=== PATIENT | male | born 1990 | race Caucasian/White ===

== ENCOUNTER 2019-12-27 11:55 | Emergency (ER) | payer OTHER ==
[2019-12-27 12:03] VITALS: BP 137/76; PULSE 83; RESP 20; TEMP 99
[2019-12-27] MEDS ORDERED: IBUPROFEN 600 MG TAB PO STA (12:10)
--- NOTE | 2019-12-27 12:49 | ED ---
General Adult HPI - General Source: patient, RN notes reviewed Mode of arrival: ambulatory Limitations: no limitations <Rei Hernandez - Last Filed: 12/27/19 13:55> <Dayana Bernstein - Last Filed: 12/27/19 23:10> - General Chief complaint: Fever Stated complaint: Fever Time Seen by Provider: 12/27/19 12:10 - History of Present Illness Initial comments: 29-year-old male without any significant past medical history presents to the emergency department for a chief complaint of fever. Patient states that he has had a fever of 102 for the past 3 days. States he did take Tylenol prior to arrival. Patient states that he has cough congestion and sore throat as well. Patient denies history of asthma or smoking. Patient also has a mild headache. Denies neck stiffness. Denies photosensitivity.Patient has no other complaints at this time including shortness of breath, chest pain, abdominal pain, nausea or vomiting, headache, or visual changes. (Rei Hernandez) - Related Data Previous Rx's Medication Instructions Recorded Azithromycin [Zithromax Z-pack] 250 mg PO DIRECTED #6 tab 12/27/19 Allergies Allergy/AdvReac Type Severity Reaction Status Date / Time No Known Allergies Allergy Verified 12/27/19 12:03 Review of Systems ROS Other: All systems not noted in ROS Statement are negative. <Rei Hernandez - Last Filed: 12/27/19 13:55> ROS Other: All systems not noted in ROS Statement are negative. <Dayana Bernstein - Last Filed: 12/27/19 23:10> ROS Statement: Those systems with pertinent positive or pertinent negative responses have been documented in the HPI. Past Medical History Past Medical History: No Reported History History of Any Multi-Drug Resistant Organisms: None Reported Past Surgical History: Orthopedic Surgery Past Psychological History: No Psychological Hx Reported Smoking Status: Never smoker Past Alcohol Use History: Occasional Past Drug Use History: None Reported <Rei Hernandez - Last Filed: 12/27/19 13:55> General Exam Limitations: no limitations General appearance: alert, in no apparent distress Head exam: Present: atraumatic, normocephalic, normal inspection Eye exam: Present: normal appearance, PERRL, EOMI. Absent: scleral icterus, conjunctival injection, periorbital swelling ENT exam: Present: normal exam, normal oropharynx (Nonerythematous, uvula midline), mucous membranes moist, TM's normal bilaterally (Nonerythematous, nonbulging), normal external ear exam Neck exam: Present: normal inspection, full ROM. Absent: tenderness, meningismus, lymphadenopathy Respiratory exam: Present: normal lung sounds bilaterally. Absent: respiratory distress, wheezes, rales, rhonchi, stridor Cardiovascular Exam: Present: regular rate, normal rhythm, normal heart sounds. Absent: bradycardia, tachycardia, irregular rhythm GI/Abdominal exam: Present: soft, normal bowel sounds. Absent: distended, tenderness, guarding, rebound, rigid <Rei Hernandez - Last Filed: 12/27/19 13:55> Course Vital Signs 12/27/19 11:59 Temperature 99 F Pulse Rate 83 Respiratory 20 Rate Blood Pressure 137/76 O2 Sat by Pulse 97 Oximetry Medical Decision Making <Rei Hernandez - Last Filed: 12/27/19 13:55> <Dayana Bernstein - Last Filed: 12/27/19 23:10> - Medical Decision Making Vitals are stable. Patient is afebrile here in the emergency department but did have Tylenol prior to arrival. Patient has fevers at home up to 102. Influenza is negative. Chest x-ray shows a right middle lobe pneumonia. Patient was treated with azithromycin. He was given a dose here in the emergency department. Patient is a nonsmoker. Patient does not have any immunocompromising factors. He was given a work note. He will follow up with primary care. He will return if he has any worsening symptoms. I discussed this case with attending Dr. Bernstein who agrees with this assessment and treatment plan. (Rei Hernandez) I was available for consultation in the emergency department. The history and physical exam were done by the midlevel provider. I was consulted for this patients care. I reviewed the case with the midlevel provider and based on their presentation of the patient, I agree with the assessment, medical decision making and plan of care as documented. Chart was dictated using [employer] dictation software. Attempts were made to correct any dictation errors however some typographical errors may persist. (Dayana Bernstein) - Lab Data Lab Results 12/27/19 Range/Units 12:25 Influenza Type A RNA Not Detected (Not Detectd) Influenza Type B (PCR) Not Detected (Not Detectd) Disposition Is patient prescribed a controlled substance at d/c from ED?: No Time of Disposition: 13:55 <DavidRei P - Last Filed: 12/27/19 13:55> <MalcolmfalguniDayana Jann - Last Filed: 12/27/19 23:10> Clinical Impression: Pneumonia Disposition: HOME SELF-CARE Condition: Good Instructions (If sedation given, give patient instructions): Fever in Adults (ED), Pneumonia (ED) Additional Instructions: Please take antibiotic as directed. Continue Motrin and Tylenol for fever. He may alternate these about every 3 hours. Follow-up with primary care in 1-2 days. They may want a repeat chest x-ray to ensure resolution. Return to the emergency department with any worsening symptoms. Prescriptions: Azithromycin [Zithromax Z-pack] 250 mg PO DIRECTED #6 tab Referrals: Rosalba Rodriguez MD [REFERRING] - 1-2 days Melissa Rodriguez MD [STAFF PHYSICIAN] - 1-2 days
--- NOTE | 2019-12-27 13:10 | XR ---
EXAMINATION TYPE: XR chest 2V DATE OF EXAM: 12/27/2019 HISTORY: cough. REFERENCE: NONE. FINDINGS: There is right middle lobe infiltrate. The left lung is clear. The heart is not enlarged. P leural spaces are clear. IMPRESSION: RIGHT MIDDLE LOBE PNEUMONIA.
[2019-12-27] MEDS ORDERED: AZITHROMYCIN 500 MG TAB PO STA (13:52)
== END 2019-12-27 14:07 | disposition home or self-care (01) ==
LOC: EC 11:55
DX: J18.9 Pneumonia, unspecified organism (principal); R51 Headache
CPT/HCPCS: 71046; 87502; 99283

== ENCOUNTER 2021-12-16 16:37 | Emergency (ER) | payer OTHER ==
[2021-12-16 16:42] VITALS: RESP 18; TEMP 100.7
--- NOTE | 2021-12-16 17:40 | ED ---
Overdose HPI - General Chief Complaint: Overdose Stated Complaint: Overdose Time Seen by Provider: 12/16/21 16:37 Source: patient, EMS, RN notes reviewed Mode of arrival: EMS Limitations: no limitations - History of Present Illness Initial Comments: 30-year-old male with a history of heroin abuse and past who apparently shot up heroin into his left arm today and became unresponsive. EMS was called by his significant other. Patient was noted have only respiratory rate of about 4/m pulse oximetry 7% on room air. She was initially given 2 mg of Narcan nasally after an IV was established she was given 2 doses of 1 mg of Narcan. Patient did awaken after the second dose. He remained awake and alert and route via the ambulance. No seizure activity was noted no trauma noted no other complaints or modifying factors at this time MD Complaint: accidental overdose - Related Data Previous Rx's Medication Instructions Recorded Azithromycin [Zithromax Z-pack (6 250 mg PO DIRECTED #6 tab 12/27/19 tabs)] Allergies Allergy/AdvReac Type Severity Reaction Status Date / Time No Known Allergies Allergy Verified 12/27/19 12:03 Review of Systems ROS Statement: Those systems with pertinent positive or pertinent negative responses have been documented in the HPI. ROS Other: All systems not noted in ROS Statement are negative. Past Medical History Past Medical History: No Reported History History of Any Multi-Drug Resistant Organisms: None Reported Past Surgical History: Orthopedic Surgery Past Psychological History: No Psychological Hx Reported Smoking Status: Vaper Past Alcohol Use History: Occasional Past Drug Use History: Heroin General Exam - General Exam Comments Initial Comments: This a well-developed well-nourished awake alert oriented times 3 male Limitations: no limitations General appearance: alert, anxious Head exam: Present: atraumatic, normocephalic, normal inspection Eye exam: Present: normal appearance, PERRL, EOMI. Absent: scleral icterus, conjunctival injection, periorbital swelling ENT exam: Present: normal exam, mucous membranes moist Neck exam: Present: normal inspection, full ROM, other (No surgery or bruits). Absent: tenderness, meningismus, lymphadenopathy Respiratory exam: Present: normal lung sounds bilaterally. Absent: respiratory distress, wheezes, rales, rhonchi, stridor Cardiovascular Exam: Present: regular rate, normal rhythm, normal heart sounds. Absent: systolic murmur, diastolic murmur, rubs, gallop, clicks GI/Abdominal exam: Present: soft, normal bowel sounds. Absent: distended, tenderness, guarding, rebound, rigid Extremities exam: Present: full ROM, normal capillary refill, other (IV site in the left arm injection site negative for evidence of infectious processes). Absent: tenderness, pedal edema, joint swelling, calf tenderness Back exam: Present: normal inspection Neurological exam: Present: alert, oriented X3, CN II-XII intact Psychiatric exam: Present: normal affect, normal mood Skin exam: Present: warm, dry, intact, normal color. Absent: rash Course Vital Signs 12/16/21 12/16/21 16:39 16:43 Temperature 100.7 F H Pulse Rate 104 H Pulse Rate [ 102 H Pulse Oximetery ] Respiratory 18 Rate Blood Pressure 139/73 O2 Sat by Pulse 94 L Oximetry Medical Decision Making - Medical Decision Making Patient was observed for approximately 1 hour he remained awake alert oriented 3 in no where he was Day it was. He initially very more state using heroin. Patient will be discharged and given home by his significant other. Disposition Clinical Impression: Accidental heroin overdose Disposition: HOME SELF-CARE Condition: Good Instructions (If sedation given, give patient instructions): Adult Overdose (ED) Is patient prescribed a controlled substance at d/c from ED?: No Referrals: None,Stated [Primary Care Provider] - 1-2 days
[2021-12-16 17:42] VITALS: BP 129/85; PULSE 100
== END 2021-12-16 17:48 | disposition home or self-care (01) ==
LOC: EC 16:37
DX: T40.1X1A Poisoning by heroin, accidental (unintentional), initial encounter (principal); F17.290 Nicotine dependence, other tobacco product, uncomplicated
CPT/HCPCS: 99284

== ENCOUNTER 2023-08-16 18:39 | Emergency (ER) | payer OTHER ==
[2023-08-16 19:16] VITALS: BP 154/100; PULSE 61; RESP 16; TEMP 98
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
== END 2023-08-16 21:59 | disposition home or self-care (01) ==
LOC: EC 18:39
DX: Z04.3 Encounter for examination and observation following other accident (principal); F17.290 Nicotine dependence, other tobacco product, uncomplicated; F15.90 Other stimulant use, unspecified, uncomplicated; X58.XXXA Exposure to other specified factors, initial encounter; Y92.411 Interstate highway as the place of occurrence of the external cause
CPT/HCPCS: 99283

== ENCOUNTER 2023-09-10 09:07 | Emergency (ER) | payer OTHER ==
[2023-09-10] MEDS ORDERED: diphenhydrAMINE 50 MG/ML 1 ML VIAL IVP STA (09:53)
[2023-09-10] MEDS ORDERED: METOCLOPRAMIDE 5 MG/ML 2 ML VIAL IVP STA (09:53)
[2023-09-10] MEDS ORDERED: DEXAMETHASONE SOD PHOSPHATE 10 MG/ML 1 ML VIAL IVP STA (09:53)
[2023-09-10] MEDS ORDERED: SODIUM CHLORIDE 0.9% 1,000 ML IV STA (09:53)
[2023-09-10] MEDS ORDERED: KETOROLAC 15 MG/ML 1 ML VIAL IVP STA ×2 (09:53→11:28)
--- NOTE | 2023-09-10 10:00 | ED ---
Headache HPI - General Chief Complaint: Upper Respiratory Infection Stated Complaint: neck pain-congestion Time Seen by Provider: 09/10/23 09:30 Source: patient, RN notes reviewed Mode of arrival: ambulatory Limitations: no limitations - History of Present Illness Initial Comments: This is a 32-year-old male who presents to the emergency department for c oughing, congestion, headaches, and neck pain. States that for the last week he has been dealing with coughing and congestion, and has since started to develop increasing headaches and neck pain. He is now having difficulty turning his head due to the neck pain, however he does not feel like there is stiffness that is preventing him from turning his head. Coughing is also causing shortness of breath. Describes the cough as productive. Denies any chest pain or sick contacts. He is not taking anything to manage his symptoms. MD Complaint: headache - Related Data Previous Rx's Medication Instructions Recorded Azithromycin [Zithromax Z-pack (6 250 mg PO DIRECTED #6 tab 12/27/19 tabs)] Ketorolac [Toradol] 10 mg PO Q6HR PRN #15 tab 09/10/23 Promethazine/Dextromethorphan 5 ml PO Q4-6H PRN #473 ml 09/10/23 [Promethazine-Dm 6.25-15 mg/5Ml] methocarbamoL [Robaxin-750] 1,500 mg PO TID PRN #30 tab 09/10/23 Allergies Allergy/AdvReac Type Severity Reaction Status Date / Time No Known Allergies Allergy Verified 09/10/23 09:21 Review of Systems ROS Statement: Those systems with pertinent positive or pertinent negative responses have been documented in the HPI. ROS Other: All systems not noted in ROS Statement are negative. Past Medical History Past Medical History: No Reported History History of Any Multi-Drug Resistant Organisms: None Reported Past Surgical History: Orthopedic Surgery Past Psychological History: No Psychological Hx Reported Smoking Status: Vaper Past Alcohol Use History: Occasional Past Drug Use History: Heroin General Exam Limitations: no limitations General appearance: alert, in no apparent distress Head exam: Present: atraumatic, normocephalic, normal inspection Eye exam: Present: normal appearance, PERRL, EOMI. Absent: scleral icterus, conjunctival injection, periorbital swelling Neck exam: Present: other (ROM limited by pain. Negative Kernig's and Brudzinski's). Absent: tenderness, meningismus, lymphadenopathy Respiratory exam: Present: normal lung sounds bilaterally. Absent: respiratory distress, wheezes, rales, rhonchi, stridor Cardiovascular Exam: Present: regular rate, normal rhythm, normal heart sounds. Absent: systolic murmur, diastolic murmur, rubs, gallop, clicks Neurological exam: Present: alert, oriented X3, CN II-XII intact Psychiatric exam: Present: normal affect, normal mood Skin exam: Present: warm, dry, intact, normal color. Absent: rash Course Vital Signs 09/10/23 09/10/23 09:21 11:44 Temperature 99.4 F 98.7 F Pulse Rate 110 H 77 Respiratory 16 18 Rate Blood Pressure 133/83 109/76 O2 Sat by Pulse 99 95 Oximetry Medical Decision Making - Medical Decision Making This is a 32-year-old male who presents to the emergency department for coughing, congestion, and neck pain. Was pt. sent in by a medical professional or institution? @ -No Did you speak to anyone other than the patient for history? @ -No Did you review nursing and triage notes? @ -Yes, and I agree, it is accurate with regards to the patient's symptoms. Were old charts reviewed? @ -No Differential Diagnosis? @ -Differential Cough: Influenza, Covid, RSV, croup, allergic rhinitis, GERD, pneumonia, bronchitis, COPD, viral pharyngitis, streptococcal pharyngitis, this is not meant to be an a ll-inclusive list. EKG interpreted by me (3pts min.)? @ -Not obtained X-rays interpreted by me (1pt min.)? @ -Chest x-ray obtained, my interpretation identifies no localized consolidations or infiltrates. CT interpreted by me (1pt min.)? @ -Not obtained U/S interpreted by me (1pt. min.)? @ -Not obtained What testing was considered but not performed? (CT, X-rays, U/S, labs)? Why? @ -None What meds were considered but not given? Why? @ -None Did you discuss the management of the patient with other professionals? @ -No Did you reconcile home meds? @ -No Was smoking cessation discussed for >3mins.? @ -I discussed smoking cessation for greater than 3 minutes. The risk of smoking were discussed with the patient including but not limited to risks of cancer, stroke, coronary artery disease and COPD. Also discussed with patient were multiple methods of quitting smoking. Lastly we discussed the financial cost of smoking. Was critical care preformed (if so, how long)? @ -No Were there social determinants of health that impacted care today? How? (Homelessness, low income, unemployed, alcoholism, drug addiction, transportation, low edu. Level, literacy, decrease access to med. care, snf, rehab)? @ -No Was there de-escalation of care discussed even if they declined? (Discuss DNR or withdrawal of care, Hospice)? @ -No What co-morbidities impacted this encounter? (DM, HTN, Smoking, COPD, CAD, Cancer, CVA, Hep., AIDS, mental health diagnosis, sleep apnea, morbid obesity)? @ -Smoking Was patient admitted / discharged? @ -Discharged. Lab work obtained revealing an elevated CRP of 5.7 and no other actionable findings. Covid, influenza, and RSV testing were negative. Chest x- ray reveals no acute process. He was initially treated with a migraine cocktail consisting of IV fluids, Toradol, Decadron, Reglan, and Benadryl. However, he did not have significant improvement in symptoms afterwards. He was then given a dose of Dilaudid and Norflex, and states that he felt significantly improved. He had full range of motion of the neck and the headache was essentially gone. While his symptoms of a headache and neck pain do give consideration to mening itis, he has no meningismus and has a negative Kernig's and Brudzinski's sign, and felt remarkably improved after medications and requested discharge home. He was given very strict return parameters and advised to have close follow-up with his primary care provider. Patient expresses understanding. He was given prescriptions for Toradol, Robaxin, and promethazine DM cough syrup with dosing instructions reviewed. Undiagnosed new problem with uncertain prognosis? @ -None Drug Therapy requiring intensive monitoring for toxicity (Heparin, Nitro, Insulin, Cardizem)? @ -None Were any procedures done? @ -None Diagnosis/symptom? @ -Bronchitis, headaches, neck pain Acute, or Chronic, or Acute on Chronic? @ -Acute Uncomplicated (without systemic symptoms) or Complicated (systemic symptoms)? @ -Uncomplicated Side effects of treatment? @ -None Exacerbation, Progression, or Severe Exacerbation] @ -Not applicable Poses a threat to life or bodily function? @ -Unlikely, however this will depend on the cause of his symptoms. Return precautions reviewed in depth, the patient is instructed to return to the emergency department with any new, worsening, or concerning symptoms. Patient verbalized understanding. This case was discussed in detail with the attending ED physician, Dr. Mcnamara. Presentation, findings, and treatment plan discussed in detail as well. - Lab Data Result diagrams: 09/10/23 10:07 09/10/23 10:07 Lab Results 09/10/23 09/10/23 09/10/23 Range/Units 09:39 10:07 10:07 WBC 4.5 (3.8-10.6) k/uL RBC 5.06 (4.30-5.90) m/uL Hgb 14.6 (13.0-17.5) gm/dL Hct 42.1 (39.0-53.0) % MCV 83.2 (80.0-100.0) fL MCH 28.9 (25.0-35.0) pg MCHC 34.7 (31.0-37.0) g/dL RDW 12.8 (11.5-15.5) % Plt Count 255 (150-450) k/uL MPV 7.7 Neutrophils % 74 % Lymphocytes % 17 % Monocytes % 6 % Eosinophils % 2 % Basophils % 0 % Neutrophils # 3.3 (1.3-7.7) k/uL Lymphocytes # 0.7 L (1.0-4.8) k/uL Monocytes # 0.3 (0-1.0) k/uL Eosinophils # 0.1 (0-0.7) k/uL Basophils # 0.0 (0-0.2) k/uL Sodium 137 (137-145) mmol/L Potassium 3.9 (3.5-5.1) mmol/L Chloride 99 (98-107) mmol/L Carbon Dioxide 23 (22-30) mmol/L Anion Gap 15 mmol/L BUN 13 (9-20) mg/dL Creatinine 0.85 (0.66-1.25) mg/dL Est GFR (CKD-EPI)AfAm >90 (>60 ml/min/1.73 sqM) Est GFR (CKD-EPI)NonAf >90 (>60 ml/min/1.73 sqM) Glucose 104 H (74-99) mg/dL Plasma Lactic Acid Rocco (0.7-2.0) mmol/L Calcium 9.3 (8.4-10.2) mg/dL Total Bilirubin 0.5 (0.2-1.3) mg/dL AST 32 (17-59) U/L ALT 27 (4-49) U/L Alkaline Phosphatase 55 (38-126) U/L C-Reactive Protein 5.7 H (<1.0) mg/dL Total Protein 7.3 (6.3-8.2) g/dL Albumin 4.2 (3.5-5.0) g/dL Influenza Type A (PCR) Not Detected (Not Detectd) Influenza Type B (PCR) Not Detected (Not Detectd) RSV (PCR) Not Detected (Not Detectd) SARS-CoV-2 (PCR) Not Detected (Not Detectd) 09/10/23 Range/Units 10:07 WBC (3.8-10.6) k/uL RBC (4.30-5.90) m/uL Hgb (13.0-17.5) gm/dL Hct (39.0-53.0) % MCV (80.0-100.0) fL MCH (25.0-35.0) pg MCHC (31.0-37.0) g/dL RDW (11.5-15.5) % Plt Count (150-450) k/uL MPV Neutrophils % % Lymphocytes % % Monocytes % % Eosinophils % % Basophils % % Neutrophils # (1.3-7.7) k/uL Lymphocytes # (1.0-4.8) k/uL Monocytes # (0-1.0) k/uL Eosinophils # (0-0.7) k/uL Basophils # (0-0.2) k/uL Sodium (137-145) mmol/L Potassium (3.5-5.1) mmol/L Chloride (98-107) mmol/L Carbon Dioxide (22-30) mmol/L Anion Gap mmol/L BUN (9-20) mg/dL Creatinine (0.66-1.25) mg/dL Est GFR (CKD-EPI)AfAm (>60 ml/min/1.73 sqM) Est GFR (CKD-EPI)NonAf (>60 ml/min/1.73 sqM) Glucose (74-99) mg/dL Plasma Lactic Acid Rocco 2.0 (0.7-2.0) mmol/L Calcium (8.4-10.2) mg/dL Total Bilirubin (0.2-1.3) mg/dL AST (17-59) U/L ALT (4-49) U/L Alkaline Phosphatase (38-126) U/L C-Reactive Protein (<1.0) mg/dL Total Protein (6.3-8.2) g/dL Albumin (3.5-5.0) g/dL Influenza Type A (PCR) (Not Detectd) Influenza Type B (PCR) (Not Detectd) RSV (PCR) (Not Detectd) SARS-CoV-2 (PCR) (Not Detectd) - Radiology Data Radiology results: report reviewed, image reviewed Disposition Clinical Impression: Bronchitis, Neck pain, Headache, Nicotine dependence Disposition: HOME SELF-CARE Instructions (If sedation given, give patient instructions): Upper Respiratory Infection (ED), Acute Headache (ED), Neck Pain (ED) Additional Instructions: Return to the emergency department with any new, worsening, or concerning sympto ms, especially worsening headaches or neck pain. Take the antibiotic as prescribed for 5 days. Take the prednisone daily for 5 days. You can take the Robaxin as 1-2 tablets 3-4 times daily for neck pain and tightness. You can also take the Toradol up to every 6 hours as needed for pain relief. You may take the Toradol with Tylenol, however if you choose to take the Toradol, do not take any other anti-inflammatories such as ibuprofen, take one or the other. Follow up with your primary care provider in 1-2 days. Prescriptions: Promethazine/Dextromethorphan [Promethazine-Dm 6.25-15 mg/5Ml] 5 ml PO Q4-6H PRN #473 ml PRN Reason: Cough methocarbamoL [Robaxin-750] 1,500 mg PO TID PRN #30 tab PRN Reason: Pain Ketorolac [Toradol] 10 mg PO Q6HR PRN #15 tab PRN Reason: Pain Is patient prescribed a controlled substance at d/c from ED?: No Referrals: None,Stated [Primary Care Provider] - 1-2 days
[2023-09-10 10:25] LABS: Basophils % (A) 0 %; Eosinophils # (A) 0.1 k/uL (0-0.7); Eosinophils % (A) 2 %; HCT 42.1 % (39.0-53.0); HGB 14.6 gm/dL (13.0-17.5); Lymphocytes # (A) 0.7 k/uL (1.0-4.8); Lymphocytes % (A) 17 %; MCH 28.9 pg (25.0-35.0); MCHC 34.7 g/dL (31.0-37.0); MCV 83.2 fL (80.0-100.0); Mean Platelet Volume 7.7; Monocytes # (A) 0.3 k/uL (0-1.0); Monocytes % (A) 6 %; Neutrophils # (A) 3.3 k/uL (1.3-7.7); Neutrophils % (A) 74 %; Platelet Count 255 k/uL (150-450); RBC 5.06 m/uL (4.30-5.90); RDW 12.8 % (11.5-15.5); WBC 4.5 k/uL (3.8-10.6)
[2023-09-10 10:39] LABS: ALT 27 U/L (4-49); AST 32 U/L (17-59); African American GFR (CKD) >90 (>60 ml/min/1.73 sqM); Albumin 4.2 g/dL (3.5-5.0); Alkaline Phosphatase 55 U/L (38-126); Anion Gap 15 mmol/L; Blood Urea Nitrogen 13 mg/dL (9-20); C Reactive Protein 5.7 mg/dL (<1.0); Calcium 9.3 mg/dL (8.4-10.2); Carbon Dioxide 23 mmol/L (22-30); Chloride 99 mmol/L (98-107); Glucose 104 mg/dL (74-99); Non-African American GFR(CKD) >90 (>60 ml/min/1.73 sqM); Potassium 3.9 mmol/L (3.5-5.1); Sodium 137 mmol/L (137-145); Total Bilirubin 0.5 mg/dL (0.2-1.3); Total Protein 7.3 g/dL (6.3-8.2)
--- NOTE | 2023-09-10 11:00 | XR ---
EXAMINATION TYPE: XR chest 2V DATE OF EXAM: 09/10/2023 COMPARISON: 12/27/2019 HISTORY: Chest pain TECHNIQUE: Frontal and lateral views of the chest are obtained. FINDINGS: There is no focal air space opacity. No evidence for pneumothorax. No pleural effusion. The cardiac silhouette size is within normal limits. The osseous structures are grossly intact. IMPRESSION: 1. No acute cardiopulmonary process.
[2023-09-10] MEDS ORDERED: ORPHENADRINE 30 MG/ML 2 ML VIAL IVP STA (11:28)
[2023-09-10] MEDS ORDERED: HYDROmorphone 1 MG/ML 1 ML SYRINGE IVP STA (11:30)
[2023-09-10 11:55] VITALS: BP 109/76; PULSE 77; RESP 18; TEMP 98.7
[2023-09-10] MEDS ORDERED: ACET/COD 300 MG/30 MG STARTER PACK 6 TAB BTL PO STA (12:50)
== END 2023-09-10 13:20 | disposition home or self-care (01) ==
LOC: EC 09:07
DX: M54.2 Cervicalgia (principal); J40 Bronchitis, not specified as acute or chronic; R51.9 Headache, unspecified; F17.290 Nicotine dependence, other tobacco product, uncomplicated; Z20.822 Contact with and (suspected) exposure to COVID-19
CPT/HCPCS: 36415; 80053; 83605; 85025; 86140; 87636; 71046; 99284; 96374; 96375 ×5; 96376; 96361 ×3; 99406; J1200; J1100; J2360; J2765; J1170; J1885

== ENCOUNTER 2025-04-16 12:59 | Emergency (ER) | payer BC, OTHER ==
--- NOTE | 2025-04-16 13:54 | ED ---
General Adult HPI - General Chief complaint: Shortness of Breath Stated complaint: SOB Time Seen by Provider: 04/16/25 13:12 Source: patient, family, RN notes reviewed Mode of arrival: ambulatory Limitations: no limitations - History of Present Illness Initial comments: 34-year-old male presented to emergency room with complaints of productive cough and shortness of breath over the past 6 days. Patient states that the symptoms started 6 days ago and this is not improved has he was given antibiotics, steroids, albuterol inhaler from urgent care. He states that he has been having a productive cough that has been green and headaches with chills. He states that he feels "short of breath ". He denies history of DVT, PE, recent prolonged travel, recent surgeries. Denies history of asthma or COPD however endorses history of tobacco use. - Related Data Previous Rx's Medication Instructions Recorded Azithromycin [Zithromax Z-pack (6 250 mg PO DIRECTED #6 tab 12/27/19 tabs)] Ketorolac [Toradol] 10 mg PO Q6HR PRN #15 tab 09/10/23 Promethazine/Dextromethorphan 5 ml PO Q4-6H PRN #473 ml 09/10/23 [Promethazine-Dm 6.25-15 mg/5Ml] methocarbamoL [Robaxin-750] 1,500 mg PO TID PRN #30 tab 09/10/23 Albuterol Inhaler [Ventolin Hfa 1 - 2 puff INHALATION Q6H PRN #1 04/16/25 Inhaler] each Benzonatate [Tessalon Perles] 100 mg PO TID PRN #15 capsule 04/16/25 Allergies Allergy/AdvReac Type Severity Reaction Status Date / Time No Known Allergies Allergy Verified 04/16/25 13:30 Review of Systems ROS Statement: Those systems with pertinent positive or pertinent negative responses have been documented in the HPI. ROS Other: All systems not noted in ROS Statement are negative. Past Medical History Past Medical History: No Reported History History of Any Multi-Drug Resistant Organisms: None Reported Past Surgical History: Orthopedic Surgery Past Psychological History: No Psychological Hx Reported Smoking Status: Vaper Past Alcohol Use History: Occasional Past Drug Use History: Heroin General Exam Limitations: no limitations General appearance: alert, in no apparent distress ENT exam: Present: normal exam, mucous membranes moist Neck exam: Present: normal inspection. Absent: tenderness, meningismus, lymphadenopathy Respiratory exam: Present: normal lung sounds bilaterally. Absent: respiratory distress, wheezes, rales, rhonchi, stridor Cardiovascular Exam: Present: regular rate, normal rhythm, normal heart sounds. Absent: systolic murmur, diastolic murmur, rubs, gallop, clicks GI/Abdominal exam: Present: soft, normal bowel sounds. Absent: distended, tenderness, guarding, rebound, rigid Extremities exam: Present: normal inspection, full ROM, normal capillary refill. Absent: tenderness, pedal edema, joint swelling, calf tenderness Skin exam: Present: warm, dry, intact, normal color. Absent: rash Course Vital Signs 04/16/25 04/16/25 04/16/25 13:27 14:34 15:19 Temperature 98.7 F 98.4 F Pulse Rate 87 85 67 Respiratory 18 20 19 Rate Blood Pressure 124/77 127/82 120/78 O2 Sat by Pulse 98 95 96 Oximetry Medical Decision Making - Medical Decision Making Was pt. sent in by a medical professional or institution (, PA, SEMICONDUCTOR PROCESSING TECHNICIAN, urgent care, hospital, or residential...) When possible be specific @ -No Did you speak to anyone other than the patient for history (EMS, parent, family, police, friend...)? What history was obtained from this source @ -No Did you review nursing and triage notes (agree or disagree)? Why? @ -I reviewed and agree with nursing and triage notes Were old charts reviewed (outside hosp., previous admission, EMS record, old EKG, old radiological studies, urgent care reports/EKG's, residential records)? Report findings @ -No old charts were reviewed Differential Diagnosis (chest pain, altered mental status, abdominal pain women, abdominal pain men, vaginal bleeding, weakness, fever, dyspnea, syncope, headache, dizziness, GI bleed, back pain, seizure, CVA, palpatations, mental health, musculoskeletal)? @ -COVID 19, RSV, influenza, pneumonia, acute bronchitis, URI, this list is not all inclusive EKG interpreted by me (3pts min.). @ -none X-rays interpreted by me (1pt min.). @ -Chest x-ray no acute cardiopulmonary process CT interpreted by me (1pt min.). @ -None done U/S interpreted by me (1pt. min.). @ -None done What testing was considered but not performed or refused? (CT, X-rays, U/S, labs)? Why? @ -None What meds were considered but not given or refused? Why? @ -None Did you discuss the management of the patient with other professionals (professionals i.e. Dr., PA, SEMICONDUCTOR PROCESSING TECHNICIAN, lab, RT, psych nurse, bilingual social worker, equipment engineer, teacher, chief media officer, immigration case manager)? Give summary @ -No Was smoking cessation discussed for >3mins.? @ -No Was critical care preformed (if so, how long)? @ -No Were there social determinants of health that impacted care today? How? (Homel essness, low income, unemployed, alcoholism, drug addiction, transportation, low edu. Level, literacy, decrease access to med. care, group home, rehab)? @ -No Was there de-escalation of care discussed even if they declined (Discuss DNR or withdrawal of care, Hospice)? DNR status @ -No What co-morbidities impacted this encounter? (DM, HTN, Smoking, COPD, CAD, Cancer, CVA, ARF, Chemo, Hep., AIDS, mental health diagnosis, sleep apnea, morbid obesity)? @ -None Was patient admitted / discharged? Hospital course, mention meds given and route, prescriptions, significant lab abnormalities, going to OR and other pertinent info. @ -Discharge. 34-year-old male presenting with URI symptoms. Overall patient is well-appearing in no signs of respiratory distress. Vitals are stable. Pulm examination is unremarkable. Chest x-ray reveals no signs of focal consolidation. Separate is negative. Discussed with patient's that symptoms are likely secondary to viral bronchitis. Recommend he continue [id number] Mucinex. Prescription sent for Tessalon Perles to help with cough suppression and albuterol inhaler. Recommend follow-up with PCP. Discussed with Dr. Long Undiagnosed new problem with uncertain prognosis? @ -No Drug Therapy requiring intensive monitoring for toxicity (Heparin, Nitro, Insulin, Cardizem)? @ -No Were any procedures done? @ -No Diagnosis/symptom? @ -Viral bronchitis Acute, or Chronic, or Acute on Chronic? @ -Acute Uncomplicated (without systemic symptoms) or Complicated (systemic symptoms)? @ -Uncomplicated Side effects of treatment? @ -No Exacerbation, Progression, or Severe Exacerbation? @ -No Poses a threat to life or bodily function? How? (Chest pain, [place], [place], pneumonia, PE, COPD, DKA, ARF, appy, cholecystitis, CVA, Diverticulitis, Homicidal, Suicidal, threat to staff... and all critical care pts) @ -No - Lab Data Lab Results 04/16/25 Range/Units 14:03 Influenza Type A (PCR) Not Detected (Not Detectd) Influenza Type B (PCR) Not Detected (Not Detectd) RSV (PCR) Not Detected (Not Detectd) SARS-CoV-2 (PCR) Not Detected (Not Detectd) Disposition Clinical Impression: Viral bronchitis Disposition: HOME SELF-CARE Condition: Good Instructions (If sedation given, give patient instructions): Acute Bronchitis (ED) Additional Instructions: Please return to the Emergency Department if symptoms worsen or any other con cerns. Prescriptions: Benzonatate [Tessalon Perles] 100 mg PO TID PRN #15 capsule PRN Reason: Cough Albuterol Inhaler [Ventolin Hfa Inhaler] 1 - 2 puff INHALATION Q6H PRN #1 each PRN Reason: Shortness Of Breath Is patient prescribed a controlled substance at d/c from ED?: No Referrals: None,Stated [Primary Care Provider] - 1-2 days Time of Disposition: 14:56
--- NOTE | 2025-04-16 14:15 | XR ---
EXAMINATION TYPE: XR chest 2V DATE OF EXAM: 04/16/2025 2:08 PM COMPARISON: 09/10/2023 CLINICAL INDICATION: Male, 34 years old with history of cough, fevers, Chest pain TECHNIQUE: XR chest 2V views of the chest are obtained. FINDINGS: There is no focal air space opacity. No evidence for pneumothorax. No pleural effusion. The cardiac silhouette size is within normal limits. The osseous structures are grossly intact. IMPRESSION: 1. No acute cardiopulmonary process. [facility], , 04/16/2025 2:13 PM
[2025-04-16 14:54] LABS: Influenza A Not Detected (Not Detectd); Influenza B Not Detected (Not Detectd); RSV Not Detected (Not Detectd)
[2025-04-16 15:21] VITALS: BP 120/78; PULSE 67; RESP 19; TEMP 98.4
== END 2025-04-16 15:21 | disposition home or self-care (01) ==
LOC: EC 12:59
DX: J20.8 Acute bronchitis due to other specified organisms (principal); B97.89 Other viral agents as the cause of diseases classified elsewhere; F17.290 Nicotine dependence, other tobacco product, uncomplicated
CPT/HCPCS: 71046; 87636; 99285